=== PATIENT | female | born 1970 | race Caucasian/White ===

== ENCOUNTER 2023-07-09 11:20 | Outpatient (OUT) | payer OTHER, SELFPAY ==
--- NOTE | 2023-07-09 | XR_ITS ---
The [address] [address] Patient Name: ION KUNZ MRN: [id number] date: 1970 Sex: F Assigned Patient Location: Current Patient Location: Accession/Order Number: [id number] Exam Date: 07/09/2023 11:22 Report Date: 07/09/2023 16:03 At the request of: TOBI RAMON Procedure: XR foot LT min 3V PROCEDURE: XR foot LT min 3V COMPARISON: None. HISTORY: LEFT FOOT PAIN FINDINGS: BONES:No fracture, acute abnormality, or significant arthropathy. SOFT TISSUES:Negative. No visible soft tissue swelling. EFFUSION:None visible. OTHER: Negative. XR/XR foot LT min 3V IMPRESSION: No acute radiographic abnormality Electronically authenticated by: VEE ABEBE Date: 07/09/2023 16:03
== END 2023-07-09 11:21 | disposition home or self-care (01) ==
LOC: EC 11:21
PROVIDERS: PCP Internal Medicine; Visit Provider Physician Assistant
DX: M79.672 Pain in left foot (principal)
CPT/HCPCS: 73630

== ENCOUNTER 2023-07-22 09:14 | Outpatient (OUT) | payer OTHER, SELFPAY ==
--- NOTE | 2023-07-22 | XR_ITS ---
The [address] [address] Patient Name: INO KUNZ MRN: [id number] date: 1970 Sex: F Assigned Patient Location: Current Patient Location: Accession/Order Number: [id number] Exam Date: 07/22/2023 09:14 Report Date: 07/22/2023 12:58 At the request of: J CARLOS MTZ Procedure: XR foot LT min 3V PROCEDURE: XR foot LT min 3V COMPARISON: 07/09/2023 HISTORY: LEFT FOOT PAIN FINDINGS: BONES:No fracture, acute abnormality, or significant arthropathy. SOFT TISSUES:Negative. No visible soft tissue swelling. EFFUSION:None visible. OTHER: Negative. XR/XR foot LT min 3V IMPRESSION: No acute disease. Electronically authenticated by: VEE ABEBE Date: 07/22/2023 12:58
--- OUTSIDE RECORDS SUMMARY | 2023-07-22 09:26 | XMS_ITS | CCD ---
Author Organization [facility] Care Team Providers Care Toolroom Attendant Name Role Phone TOBI RAMON Admitting Unavailable TOBI RAMON Attending Unavailable MISC, DR ADAMS Primary Care Unavailable TRISTEN, TOBI Admitting Unavailable TRISTEN, TOBI Attending Unavailable MISC, DR ADAMS Primary Care Unavailable ZIKAYLAN, DR NONI Monteiro Consulting Unavailable TRISTEN, TOBI Consulting Unavailable TRISTEN, TOBI Admitting Unavailable TRISTEN, TOBI Attending Unavailable MISC, DR ADAMS Primary Care Unavailable TOBI RAMON Consulting Unavailable J CARLOS LEMUS Consulting Unavailable TRISTEN, TOBI Admitting Unavailable TRISTEN, TOBI Attending Unavailable MISC, DR ADAMS Primary Care Unavailable MIS, DR VEE Babb Consulting Unavailable TRISTEN, TOBI Consulting Unavailable STACY, DR NOONAN Admitting Unavailable STACY, DR NOONAN Attending Unavailable ALEXANDREAC, DR ADAMS Primary Care Unavailable STACY, DR NOONAN Consulting Unavailable CAITY Hernandez Attending Provider Matilde Hernandez Attending Unavailable Matilde Hernandez Admitting Unavailable NO FAMILY, PHYSICIAN Primary Care Unavailable No Rosas Primary Care Physician [phone] No Rosas Admitting Unavailable RalphNo Attending Unavailable RalphNo Attending Unavailable RalphNo Attending Unavailable RalphNo Attending Unavailable No Rosas Admitting Unavailable Medications Current Medications Medication Drug Class(es) Dates Sig (Normalized) Sig (Original) ferrous sulfate 325 mg oral tablet (1 source) Start: 06-19-2023 take 1 tablet by mouth once daily ferrous sulfate 325 mg Tab 325 mg = 1 tab(s), Oral, Daily, # 90 tab(s), Refills(s) 0, Pharmacy: [facility]/pharmacy #[id number], 170.5, cm, 06/18/23 9:25:00 EDT, Height/Length Dosing, 95.8, kg, 06/18/23 9:25:00 EDT, Weight Dosing Start Date: 06/19/23 Status: Ordered phentermine hydrochloride 37.5 mg oral tablet (1 source) Sympathomimetic Amine Anorectic Start: 06-26-2023 take 1 tablet by mouth once daily phentermine 37.5 mg Tab 37.5 mg = 1 tab(s), Oral, Daily, # 30 tab(s), Refills(s) 0, Pharmacy: [id number], 170.9, cm, 06/26/23 15:15:00 EDT, Height/Length Dosing, 97.2, kg, 06/26/23 15:15:00 EDT, Weight Dosing Start Date: 06/26/23 Status: Ordered Completed/Discontinued Medications Medication Drug Class(es) Dates Sig (Normalized) Sig (Original) Vitamin D 50,000 intl units (1.25 mg) oral capsule (1 source) Start: 06-19-2023 take 1 capsule by mouth every week Vitamin D 50,000 intl units (1.25 mg) oral capsule 50,000 International_Unit = 1 cap(s), Oral, qWeek, # 12 cap(s), Refills(s) 3, Pharmacy: [facility]/pharmacy #[id number], 170.5, cm, 06/18/23 9:25:00 EDT, Height/Length Dosing, 95.8, kg, 06/18/23 9:25:00 EDT, Weight Dosing Start Date: 06/19/23 Status: Ordered Problems Problem Classification Problem Date Documented Da te Episodic/Chronic Fracture of lower limb (5 sources) Nondisplaced fracture of fifth metatarsal bone, left foot, subsequent encounter for fracture with routine healing; Translations: [Displaced fracture of fifth metatarsal bone, left foot, initial encounter for closed fracture] Onset: 04-01-2022 Episodic Genitourinary symptoms and ill-defined conditions (1 source) Dysuria; Translations: [Dysuria] Onset: 04-03-2023 Episodic Malaise and fatigue (2 sources) Fatigue 06-18-2023 Episodic Other connective tissue disease (4 sources) Pain in left foot; Translations: [PAIN IN LEFT FOOT] Onset: 05-01-2022 Episodic Other connective tissue disease (2 sources) Foot pain 06-18-2023 Episodic Other non-traumatic joint disorders (2 sources) Joint pain 06-18-2023 Episodic Other nutritional; endocrine; and metabolic disorders (1 source) Body mass index 30+ - obesity 06-26-2023 Chronic Other nutritional; endocrine; and metabolic disorders (2 sources) Weight gain 06-18-2023 Episodic Unclassified (2 sources) Patient encounter status 06-26-2023 Results Test Name Value Interpretation Reference Range Facility Reminderson 07-02-2023 Reminders - From: No Ford To: [facility] - Clinical; Sent: 07/02/2023 10:59:13 EDT Show up: 07/02/2023 11:00:00 EDT Subject: Ambulatory Reminder Due Date/Time: 07/03/2023 10:59:00 EDT pap and HPV negative Results: Date Result Name Value Ref Range 06/26/2023 15:19 HPV Aptima Negative (Negative - ) 06/26/2023 15:19 PAP Note Patient informed and voiced understanding. Normal [facility] PAP [id number] 07-01-2023 Cytology report Cyto stain Doc (Cvx/Vag) Note Invalid Interpretation Code [facility] Comment on above: Result Comment: TEST S RESULT FLAG UNITS REF RANGE LAB Clinician Provided Cytology Information Source.............Vagina No. of containers..01 ThinPrep Vial DIAGNOSIS: 01 NEGATIVE FOR INTRAEPITHELIAL LESION OR MALIGNANCY. Specimen adequacy: 01 Satisfactory for evaluation. Performed by: Noah Gamez, Time Piece Repairer ([facility]) . 01 Note: Note 02 The Pap smear is a screening test designed to aid in the detection of premalignant and malignant conditions of the uterine cervix. It is not a diagnostic procedure and should not be used as the sole means of detecting cervical cancer. Both false-positive and false-negative reports do occur. Test Methodology: Note 02 This liquid based ThinPrep(R) pap test was screened with the use of an image guided system. HPV Genotype Reflex Note 01 Criteria not met, HPV Genotype not performed. FLAG LEGEND: L-Low Normal,H-High Normal,LL-Alert Low,HH-Alert High <-Panic Low,>-Panic High,A-Abnormal,AA-Critical Abnormal Performed at: 01 [facility] [address] [place] [address] Juan Carlos Meyer MD, [address] [address] Marii Alex MD, Performed By: #### 1 [id number] #### [facility] [address] [place] [address] HPV 16+18+31+33+35+39+45+ 51+52+56+58+59+66+68 DNA Probe+sig amp Ql (Cvx) Negative Invalid Interpretation Code Negative [facility] Comment on above: Result Comment: This nucleic acid amplification test detects fourteen high-risk HPV types (16,18,31,33,35,39,45,51,52,56,58,59,66,68) without differentiation. Performed at: [facility] [address] [place], [place] [id number] MD Mitch Rangel Performed at: =[facility] [address] [id number] MD Isai Colvin Performed By: #### 1 [id number] #### [facility] [address] [place] [address] Medication Consenton 024 Medication Consent [id number]#[id number] Normal [facility] Physician Orderon 06-29-2023 Physician Order [id number] #1.00TIFF Normal [facility] Family Medicine Office/Clini c Noteon 06-26-2023 Family Medicine Office/Clinic Note HPI Staff Luh is a 52 year old female presenting for well woman Woman check up: Last pap: 2016 Last José Miguel: pap order [id number] 06/18/23 Results of lap pap: normal Where was it done: hx: # of pregnancies..2. abortions...Miscarri age.2.. live births... living children...0 menstrual cycle (normal,heavy,ect): hysterectomy History of STD: no Do you want tested for STD today: no Vaginal discharge, odor, itching: no Self breast exam at home? yes Hx of breast, cervical or uterine cancer in the family: no History of Present Illness pt presents today for well woman exam Review of Systems PHQ Score Initial Depression Screen Score: 0 SCORE Physical Exam Vitals & Measurements HR: 72(Peripheral) RR: 18 BP: 122/80 SpO2: 99% HT: 67 in HT: 170.9 cm WT: 97.15 kg WT: 213.73 lb BMI: 33.26 General: Well developed, well nourished, in no acute distress Neck: Neck supple. No masses or palpable cervical nodes. Trachea midline. Thyroid without nodules, masses, tenderness, or enlargement Breast: No mass, nodule, discharge, or erythema bilaterally, and no axillary lymphadenopathy Lungs: Normal respiratory effort and clear to auscultation Cardio: Regular rate and rhythm, normal S1 and S2, no murmur, no rub Abdomen: Soft, non-distended, non-tender, normal bowel sounds x4 Gyno: normal external genitalia. Urethra no discharge. Vagina normal without lesions, no vaginal discharge. Hysterectomy Neurologic: Grossly normal Skin: [place], moist, no tenting Lymph Nodes: No cervical adenopathy, nodes normal Mental Status: Alert and oriented x3. Normal mood and affect Assessment/Plan 1. Well woman exam (Z01.419: Encounter for gynecological examination (general) (routine) without abnormal findings) well woman exam. pap obtained. BSE discussed. mammogram order provided. all questions answered. RTC as needed Ordered: phentermine, 37.5 mg = 1 tab(s), Oral, Daily, # 30 tab(s), Refills(s) 0, Pharmacy: [facility] #[facility], 170.9, cm, 06/26/23 15:15:00 EDT, Height/Length Dosing, 97.2, kg, 06/26/23 15:15:00 EDT, Weight Dosing PAP w/ HPV and Genotype rflx 2. Breast cancer screening (Z12.39: Encounter for other screening for malignant neoplasm of breast) mammogram order given Ordered: phentermine, 37.5 mg = 1 tab(s), Oral, Daily, # 30 tab(s), Refills(s) 0, Pharmacy: [facility] #[facility], 170.9, cm, 06/26/23 15:15:00 EDT, Height/Length Dosing, 97.2, kg, 06/26/23 15:15:00 EDT, Weight Dosing PAP w/ HPV and Genotype rflx 3. Weight gain (R63.5: Abnormal weight gain) up 3 pounds since last visit. will start adipex 4. BMI 33.0-33.9,adult (Z68.33: Body mass index [BMI] 33.0-33.9, adult) bmi education complete Follow-up No qualifying data available Problem List/Past Medical History Ongoing BMI 33.0-33.9,adult Breast cancer screening Fatigue Foot pain Joint pain Weight gain Well woman exam Historical No qualifying data Procedure/Surgical History Hysterectomy and bilateral salpingo-oophorectom y specimen. Medications ferrous sulfate 325 mg Tab, 325 mg= 1 tab(s), Oral, Daily phentermine 37.5 mg Tab, 37.5 mg= 1 tab(s), Oral, Daily Vitamin D 50,000 intl units (1.25 mg) oral capsule, [address]106 International_Unit= 1 cap(s), Oral, qWeek, 3 refills Allergies No Known Allergies Social History Alcohol Current, Wine, 1-2 times per month, Alcohol use interferes with work or home: No. Drinks more than intended: No. Others hurt by drinking: No. Ready to change: No. Household alcohol concerns: No., 06/18/2023 Tobacco Never (less than 100 in lifetime) Tobacco Use:. Never Smokeless Tobacco Use:. Household tobacco concerns: No., 06/26/2023 Family History Primary malignant neoplasm of skin: Father. Rheumatoid arthritis: Mother. Immunizations Vaccine Date Status influenza virus vaccine, inactivated 10/30/2020 Recorded SARS-CoV-2 (COVID-19) mRNA BNT-162b2 vax 04/13/2020 Recorded SARS-CoV-2 (COVID-19) mRNA BNT-162b2 vax 03/23/2020 Recorded influenza virus vaccine, inactivated 10/31/2019 Recorded influenza virus vaccine, inactivated 11/10/2018 Recorded influenza virus vaccine, inactivated 10/27/2017 Recorded Normal [facility] Comment on above: Result Comment: Elec tronically Signed By: No Ford\.br\Date and Time Signed: 06/26/23 15:40 EDT PAP [id number] 06-26-2023 Gynecological Body Site VAGINA Normal [facility] Comment on above: Performed By: #### 1 [id number] #### [facility] [address] [place] [address] Provider Letteron 06-25-2023 Provider Letter June 25, 2023 LUH KUNZ [address] [place] [phone] : 1970 Dear Luh, We have been trying to reach you with no success. It is important that you return our call regarding your test results upon receiving this letter. Also, at the time of your call, please provide us with your current information. Thank you for your prompt attention to this matter. Sincerely, [place] [address] [facility] Reminderson 06-25-2023 Reminders - From: No Ford To: [facility] - Clinical; Sent: 06/22/2023 14:20:35 EDT Show up: 06/22/2023 14:21:00 EDT Subject: Ambulatory Reminder Due Date/Time: 06/23/2023 14:20:00 EDT Rheumatoid and inflammatory labs are negative Results: Date Result Name Value Ref Range 06/18/2023 9:57 CCP Abys IgG/IgA 6 unit(s) (0-19 - ) 06/18/2023 9:57 CHATO Direct Negative (Negative - ) 06/18/2023 9:57 RA Latex Turbid <10.0 International_Unit/m L (<14.0 - ) 2 messages in chart attempted to call 3 times. Messages in 2nd message. letter sent. Normal [facility] Reminderson 06-23-2023 Reminders - From: No Ford To: [facility] - Clinical; Sent: 06/19/2023 09:16:44 EDT Show up: 06/19/2023 09:17:00 EDT Subject: Ambulatory Reminder Due Date/Time: 06/20/2023 09:16:00 EDT will send vitamin D to pharmacy as well as iron supplement Results: Date Result Name Ind Value Ref Range 06/18/2023 9:57 CRP 0.4 mg/dL ( - <=1.9) 06/18/2023 9:57 Iron 99 mcg/dL (35 - 153) 06/18/2023 9:57 Transferrin 316 mg/dL (200 - 370) 06/18/2023 9:57 TIBC ((H)) 442 mcg/dL (250 - 400) 06/18/2023 9:57 TSH 2.82 mcIU/mL (0.34 - 5.60) 06/18/2023 9:57 T4 Free 0.85 ng/dL (0.58 - 1.64) 06/18/2023 9:57 Vitamin D 25 Hydroxy ((L)) 23.4 ng/mL (30.0 - 100.0) Attempted to call patient. No answer. Left message for patient to return call. Attempt #2 to call patient. No answer. Left message for patient to return call. 2 messages in chart. Normal [facility] CHATO w/Reflex if POSon 2023 Nuclear Ab Ql (S) Negative Invalid Interpretation Code Negative [facility] Comment on above: Result Comment: Perf ormed at: [address] [id number] PhD Alessandra Hodge Performed By: #### 5 [id number] #### [facility] [address] [place] [address] CCP Antibodies IgG/IgAon Cyclic citrullinated peptide IgA+IgG IA Qn 6 unit(s) Invalid Interpretation Code 0-19 [facility] Comment on above: Result Comment: Nega tive <20 Weak positive 20 - 39 Moderate positive 40 - 59 Strong positive >59 Performed at: [address] [id number] PhD Alessandra Hodge Performed By: #### 1 [id number] #### [facility] [address] [place] [address] RF Quanton 06-22-2023 Rheumatoid factor Qn [IU]/mL Invalid Interpretation Code <14.0 [facility] Comment on above: Result Comment: Perf ormed at: [address] [id number] PhD Alessandra Hodge Performed By: #### 1 [id number] #### [facility] [address] [place] [address] T3 Freeon 06-20-2023 Free T3 [Mass/Vol] 3.3 pg/mL Invalid Interpretation Code 2.0-4.4 [facility] Comment on above: Result Comment: Perf ormed at: [address] [id number] PhD Alessandra Hodge Performed By: #### 5 [id number] #### [facility] [address] [place] [address] Ambulatory Visit Summaryon 0 06-18-2023 Ambulatory Visit Summary LUH KUNZ :1970 Visit Date:06/18/2023 Ambulatory Visit Instructions Your Diagnosis Fatigue Joint pain Weight gain Foot pain Your Care Team Attending Physician - No Ford Primary Care Physician - No Ford Procedures Performed Hysterectomy and bilateral salpingo-oophorectom y specimen. Discharge Vitals Heart Rate (Peripheral) 96 Respiratory Rate 18 Blood Pressure 126/80 Height 170.5 cm Height 67 in Weight 95.8 kg Weight 210.76 lb BMI 32.95 What to do next Scheduled Follow-Up Appointments Thursday 3:00 PM EDT With: No Ford Where: [facility] Medicine Joe Normal [facility] CHEMISTRYOrdered By: SYSTEM SYSTEM on 06-18-2023 25-hydroxyvitamin D3 [Mass/Vol] 23.4 ng/mL Low 30.0 - 100.0 ng/mL Remisol Chem CRP [Mass/Vol] 0.4 mg/dL Normal <=1.9mg/dL Remisol Ch em Free T4 [Mass/Vol] 0.85 ng/dL Normal 0.58 - 1. 64 ng/dL Remisol Chem Iron [Mass/Vol] 99 ug/dL Normal 35 - 153 mcg/dL Remisol Chem Iron binding capacity [Mass/Vol] 442 ug/dL High 250 - 400 mcg/dL Remisol Chem Transferrin [Mass/Vol] 316 mg/dL Normal 200 - 370 mg/dL Remisol Chem TSH Qn 2.82 m[IU]/L Normal 0.34 - 5.60 mcIU/mL Remisol Chem CRPon 06-18-2023 CRP [Mass/Vol] 0.4 mg/dL Normal <=1.9 [facility] Comment on above: Performed By: #### 1 [id number] #### [facility] [address] [place] [address] Family Medicine Office/Clini c Noteon 05-09-2024 Family Medicine Office/Clinic Note HPI Staff Luh is a 52 year old female presenting to establish care Establish Care: History: Any previous diagnosis: n/a History of seeing any specialist: When was your last doctors visit: Last provider: Delphine Any recent labs: 09/2022 [facility] Health Maintenance UTD: Colonoscopy: never had one Mammogram: Never had one, would like order to [facility] Pelvic/Pap: 2016 Acute: Current issues/complaints: bilateral feet aching has been going on for about a month, worse when she has been sleeping all night and goes to get up in the morning bottom of feet feel tight. Fatigue: onset for a year, goes to sleep around 9pm but wakes up a few times throughout the night and when waking in the morning feels exhausted. Denies snoring, waking up choking, no apnea. Onset: 2 weeks ago intermittent bilateral hands joints feel tight. History of Present Illness pt presents today to establish care. c/o joint pain, fatigue and foot pain Review of Systems PHQ Score Initial Depression Screen Score: 0 SCORE Physical Exam Vitals & Measurements HR: 96(Peripheral) RR: 18 BP: 126/80 SpO2: 97% HT: 67 in HT: 170.5 cm WT: 95.8 kg WT: 210.76 lb BMI: 32.95 General: alert, no acute distress ENMT: oral mucosa moist, no pharyngeal erythema or exudate Cardiovascular: regular rate and rhythm, normal peripheral perfusion Respiratory: Lungs CTA, respirations non labored Extremities: no deformity, no trauma Neurological: oriented x 4, LOC appropriate for age, CN II-XII intact, motor strength equal & normal bilaterally, speech normal Assessment/Plan 1. Fatigue (R53.83: Other fatigue) pt c/o worsening fatigue that started about a year ago but is worsening the last couple weeks. will check labs today. pt to return for a well woman exam. will discuss results at that visit. Ordered: Free T4 Iron Level T3 Free Thyroid Stimulating Hormone TIBC Calculated Vitamin D 25 Hydroxy 2. Joint pain (M25.50: Pain in unspecified joint) AFSHAN hands and finger joints are still and painful. mom has RA will check labs today Ordered: Free T4 Iron Level T3 Free Thyroid Stimulating Hormone TIBC Calculated Vitamin D 25 Hydroxy 3. Weight gain (R63.5: Abnormal weight gain) pt c/o weight gain having difficulty losing it Ordered: Free T4 Iron Level T3 Free Thyroid Stimulating Hormone TIBC Calculated Vitamin D 25 Hydroxy 4. Foot pain (M79.673: Pain in unspecified foot) PT c/o AFSHAN foot pain on top and across toes Orders: CHATO w/Reflex if POS C-Reactive Protein CCP Antibodies IgG/IgA Rheumatoid Factor Quantitative Follow-up No qualifying data available Patient Education Plantar Fasciitis Problem List/Past Medical History Ongoing Fatigue Foot pain Joint pain Weight gain Historical No qualifying data Procedure/Surgical History Hysterectomy and bilateral salpingo-oophorectom y specimen. Medications No active medications Allergies No Known Allergies Social History Alcohol Current, Wine, 1-2 times per month, Alcohol use interferes with work or home: No. Drinks more than intended: No. Others hurt by drinking: No. Ready to change: No. Household alcohol concerns: No., 06/18/2023 Tobacco Never (less than 100 in lifetime) Tobacco Use:. Never Smokeless Tobacco Use:. Household tobacco concerns: No., 06/18/2023 Family History Primary malignant neoplasm of skin: Father. Rheumatoid arthritis: Mother. Immunizations Vaccine Date Status influenza virus vaccine, inactivated 10/30/2020 Recorded SARS-CoV-2 (COVID-19) mRNA BNT-162b2 vax 04/13/2020 Recorded SARS-CoV-2 (COVID-19) mRNA BNT-162b2 vax 03/23/2020 Recorded influenza virus vaccine, inactivated 10/31/2019 Recorded influenza virus vaccine, inactivated 11/10/2018 Recorded influenza virus vaccine, inactivated 10/27/2017 Recorded Normal [facility] Comment on above: Result Comment: Elec tronically Signed By: No Ford\.br\Date and Time Signed: 06/18/23 10:03 EDT Free T4on 06-18-2023 Free T4 [Mass/Vol] 0.85 ng/dL Normal 0.58-1.64 [facility] Comment on above: Performed By: #### 5 [id number] #### [facility] [address] [place] [address] Ironon 06-18-2023 Iron [Mass/Vol] 99 microgram/dL Normal 35-153 [facility] Comment on above: Performed By: #### 5 [id number] #### [facility] [address] [place] [address] Patient Educationon 06-18-19 Patient Education Orthopedics Plantar Fasciitis Plantar fasciitis is a painful foot condition that affects the heel. It occurs when the band of tissue that connects the toes to the heel bone (plantar fascia) becomes irritated. This can happen as the result of exercising too much or doing other repetitive activities (overuse injury). Plantar fasciitis can cause mild irritation to severe pain that makes it difficult to walk or move. The pain is usually worse in the morning after sleeping, or after sitting or lying down for a period of time. Pain may also be worse after long periods of walking or standing. What are the causes? This condition may be caused by: ? Standing for long periods of time. ? Wearing shoes that do not have good arch support. ? Doing activities that put stress on joints (high-impact activities). This includes ballet and exercise that makes your heart beat faster (aerobic exercise), such as running. ? Being overweight. ? An abnormal way of walking (gait). ? Tight muscles in the back of your lower leg (calf). ? High arches in your feet or flat feet. ? Starting a new athletic activity. What are the signs or symptoms? The main symptom of this condition is heel pain. Pain may get worse after the following: ? Taking the first steps after a time of rest, especially in the morning after awakening, or after you have been sitting or lying down for a while. ? Long periods of standing still. Pain may decrease after 30?45 minutes of activity, such as gentle walking. How is this diagnosed? This condition may be diagnosed based on your medical history, a physical exam, and your symptoms. Your health care provider will check for: ? A tender area on the bottom of your foot. ? A high arch in your foot or flat feet. ? Pain when you move your foot. ? Difficulty moving your foot. You may have imaging tests to confirm the diagnosis, such as: ? X-rays. ? Ultrasound. ? MRI. How is this treated? Treatment for plantar fasciitis depends on how severe your condition is. Treatment may include: ? Rest, ice, pressure (compression), and raising (elevating) the affected foot. This is called RICE therapy. Your health care provider may recommend RICE therapy along with [id number] pain medicines to manage your pain. ? Exercises to stretch your calves and your plantar fascia. ? A splint that holds your foot in a stretched, upward position while you sleep (night splint). ? Physical therapy to relieve symptoms and prevent problems in the future. ? Injections of steroid medicine (cortisone) to relieve pain and inflammation. ? Stimulating your plantar fascia with electrical impulses (extracorporeal shock wave therapy). This is usually the last treatment option before surgery. ? Surgery, if other treatments have not worked after 12 months. Follow these instructions at home: Managing pain, stiffness, and swelling ? If directed, put ice on the painful area. To do this: ? Put ice in a plastic bag, or use a frozen bottle of water. ? Place a towel between your skin and the bag or bottle. ? Roll the bottom of your foot over the bag or bottle. ? Do this for 20 minutes, 2?3 times a day. ? Wear athletic shoes that have air-sole or gel-sole cushions, or try soft shoe inserts that are designed for plantar fasciitis. ? Elevate your foot above the level of your heart while you are sitting or lying down. Activity ? Avoid activities that cause pain. Ask your health care provider what activities are safe for you. ? Do physical therapy exercises and stretches as told by your health care provider. ? Try activities and forms of exercise that are easier on your joints (low impact). Examples include swimming, water aerobics, and biking. General instructions ? Take hmhr-mte-bkcmmcb and prescription medicines only as told by your health care provider. ? Wear a night splint while sleeping, if told by your health care provider. Loosen the splint if your toes tingle, become numb, or turn cold and blue. ? Maintain a healthy weight, or work with your health care provider to lose weight as needed. ? Keep all follow-up visits. This is important. Contact a health care provider if you have: ? Symptoms that do not go away with home treatment. ? Pain that gets worse. ? Pain that affects your ability to move or do daily activities. Summary ? Plantar fasciitis is a painful foot condition that affects the heel. It occurs when the band of tissue that connects the toes to the heel bone (plantar fascia) becomes irritated. ? Heel pain is the main symptom of this condition. It may get worse after exercising too much or standing still for a long time. ? Treatment varies, but it usually starts with rest, ice, pressure (compression), and raising (elevating) the affected foot. This is called RICE therapy. Omnv-vju-uahflnn medicines can also be used to manage pain. This information is not (more content not included)... Normal [facility] TIBC Calculatedon 06-18-2023 Iron binding capacity [Mass/Vol] 442 microgram/dL High 250-400 [facility] Comment on above: Performed By: #### 5 [id number], [id number], [id number] #### [facility] [address] [place] [address] Transferrin [Mass/Vol] 316 mg/dL Normal 200-370 [facility] Comment on above: Performed By: #### 5 [id number], [id number], [id number] #### [facility] [address] [place] [address] TSHon 06-18-2023 TSH Qn 2.82 m[IU]/L Normal 0.34-5.60 [facility] Comment on above: Performed By: #### 5 [id number], [id number], [id number], [id number], [id number] #### [facility] [address] [place] [address] Vitamin D 25 Hydroxyon 06-17 25-hydroxyvitamin D3 [Mass/Vol] 23.4 ng/mL Low 30.0-100.0 [facility] Comment on above: Performed By: #### 5 [id number], [id number], [id number], [id number] #### [facility] [address] [place] [address] Urine Cultureon 04-02-2023 Bacteria identified Cx Nom (U) DIAGNOSIS R30.0 DYSURIA >100,000 colonies/ml mixed bacterial skin contaminants 2 Days PERFORMED BY: [place] [id number] PATHOLOGIST [employer] WORKER YESSENIA PRITCHARD M.D. Normal [facility] Comment on above: Performed By: #### C UU #### [place] [id number] [facility] XR FOOT LT MIN 3 VIEWSon XR FOOT LT MIN 3 VIEWS EXAM: XR FOOT LT MIN 3 VIEWS HISTORY: Pain in left foot . Follow-up study. COMPARISON: 04/01/2022 TECHNIQUE: 3 views of left foot were obtained. FINDINGS: Again seen is a healing nondisplaced fracture at the base of the fifth metatarsal bone. There is no other evidence of a fracture or dislocation. The joint spaces appear intact. IMPRESSION: Healing nondisplaced fracture of the base of the fifth metatarsal bone, which remains essentially unchanged. Electronically authenticated by: J CARLOS LEMUS Date: 2022-05-01 14:46 Normal [facility] CBC AUTO DIFFon 09-26-2021 BASO # 0.1 103/ul Normal 0.0-0.1 [facility] Comment on above: Performed By: #### H FPFCBC #### [facility] [address] [place] [address] Dr. Sapphire Watson Basophils/100 WBC (Bld) 1.1 % Normal 0.2-2.0 [facility] Comment on above: Performed By: #### H FPFCBC #### [facility] [address] [address] [address] Sapphire Watson EO # 0.1 103/ul Normal 0.0-0.7 [facility] Comment on above: Performed By: #### H FPFCBC #### [facility] [address] [address] [address] Sapphire Watson Eosinophils/100 WBC (Bld) 1.8 % Normal 0.9-7.0 [facility] Comment on above: Performed By: #### H FPFCBC #### [facility] [address] [place] [address] Dr. Sapphire Watson Erythrocyte distribution width (RBC) [Ratio] 12.0 % Normal 11.0-15.0 [facility] Comment on above: Performed By: #### H FPFCBC #### [facility] [address] [place] [address] Dr. Sapphire Watson Hematocrit (Bld) [Volume fraction] 38.8 % Normal 36.0-48.0 [facility] Comment on above: Performed By: #### H FPFCBC #### [facility] [address] [place] [address] Dr. Sapphire Watson Hemoglobin (Bld) [Mass/Vol] 13.1 g/dL Normal 12.0-16.0 [facility] Comment on above: Performed By: #### H FPFCBC #### [facility] [address] [place] [address] Dr. Sapphire Watson IG # 0.01 10e3/ul Normal 0.00-0.03 [facility] Comment on above: Performed By: #### H FPFCBC #### [facility] [address] [place] [address] Dr. Sapphire Watson IG % 0.2 % Normal 0.0-0.5 [facility] Comment on above: Performed By: #### H FPFCBC #### [facility] [address] [place] [address] Dr. Sapphire Watson LYMPH # 1.6 103/ul Normal 1.2-3.8 [facility] Comment on above: Performed By: #### H FPFCBC #### [facility] [address] [place] [address] Dr. Sapphire Watson Lymphocytes/100 WBC (Bld) 36.2 % Normal 20.5-60.0 [facility] Comment on above: Performed By: #### H FPFCBC #### [facility] [address] [place] [address] Dr. Sapphire Watson MCH (RBC) [Entitic mass] 30.0 pg Normal 26.7-34.0 [facility] Comment on above: Performed By: #### H FPFCBC #### [facility] [address] [place] [address] Dr. Sapphire Watson MCHC (RBC) [Mass/Vol] 33.8 g/dL Normal 29.9-35.2 [facility] Comment on above: Performed By: #### H FPFCBC #### [facility] [address] [place] [address] Dr. Sapphire Watson MCV (RBC) [Entitic vol] 89.0 fL Normal 81.0-99.0 [facility] Comment on above: Performed By: #### H FPFCBC #### [facility] [address] [place] [address] Dr. Sapphire Watson MONO # 0.4 103/ul Normal 0.3-0.8 [facility] Comment on above: Performed By: #### H FPFCBC #### [facility] [address] [place] [address] Dr. Sapphire Watson Monocytes/100 WBC (Bld) 8.5 % Normal 1.7-12.0 [facility] Comment on above: Performed By: #### H FPFCBC #### [facility] [address] [place] [address] Dr. Sapphire Watson NEUT # 2.3 103/ul Normal 1.4-6.5 [facility] Comment on above: Performed By: #### H FPFCBC #### [facility] [address] [place] [address] Dr. Sapphire Watson Neutrophils/100 WBC (Bld) 52.2 % Normal 43.0-75.0 [facility] Comment on above: Performed By: #### H FPFCBC #### [facility] [address] [place] [address] Dr. Sapphire Watson Platelet mean volume (Bld) [Entitic vol] 9.5 fL Normal 9.5-13.5 [facility] Comment on above: Performed By: #### H FPFCBC #### [facility] [address] [place] [address] Dr. Sapphire Watson PLT 293 103/ul Normal 150-450 [facility] Comment on above: Performed By: #### H FPFCBC #### [facility] [address] [place] [address] Dr. Sapphire Watson RBC 4.36 106/ul Normal 4.20-5.40 [facility] Comment on above: Performed By: #### H FPFCBC #### [facility] [address] [place] [address] Dr. Sapphire Watson WBC 4.5 103/ul Normal 4.0-11.0 [facility] Comment on above: Performed By: #### H FPFCBC #### [facility] [address] [place] [address] Dr. Sapphire Watson [facility] PROFILEon 022 Albumin [Mass/Vol] 3.9 g/dL Normal 3.4-5.0 [facility] Comment on above: Performed By: #### H FPF #### [facility] [address] [place] [address] Dr. Sapphire Watson Albumin/Globulin [Mass ratio] 1.0 {ratio} Normal [facility] Comment on above: Performed By: #### H FPF #### [facility] [address] [place] [address] Dr. Sapphire Watson ALP [Catalytic activity/Vol] 85 U/L Normal 46-116 [facility] Comment on above: Performed By: #### H FPF #### [facility] [address] [place] [address] Dr. Sapphire Watson ALT [Catalytic activity/Vol] 29 U/L Normal 14-59 [facility] Comment on above: Performed By: #### H FPF #### [facility] [address] [place] [address] Dr. Sapphire Watson AST [Catalytic activity/Vol] 17 U/L Normal 15-37 [facility] Comment on above: Performed By: #### H FPF #### [facility] [address] [place] [address] Dr. Sapphire Watson Bilirubin [Mass/Vol] 0.5 mg/dL Normal 0.2-1.0 [facility] Comment on above: Performed By: #### H FPF #### [facility] [address] [address] [address] Sapphire Watson Calcium [Mass/Vol] 8.9 mg/dL Normal 8.5-10.1 [facility] Comment on above: Performed By: #### H FPF #### [facility] [address] [address] [address] Sapphire Watson Chloride [Moles/Vol] 103 mmol/L Normal 98-107 [facility] Comment on above: Performed By: #### H FPF #### [facility] [address] [place] [address] Dr. Sapphire Watson CHOL-HDL RATIO NORM SEE BELOW Normal [facility] Comment on above: Result Comment: 3.3 - 4.4 LOW RISK 4.4 - 7.1 AVERAGE RISK 7.1 - 11.0 MODERATE RISK >11.0 HIGH RISK Performed By: #### H FPF #### [facility] [address] [address] [address] Sapphire Watson Cholesterol [Mass/Vol] 192 mg/dL Normal <=200 [facility] Comment on above: Performed By: #### H FPF #### [facility] [address] [place] [address] Dr. Sapphire Watson Cholesterol in HDL [Mass/Vol] 57 mg/dL Normal 40-60 [facility] Comment on above: Performed By: #### H FPF #### [facility] [address] [address] [address] Sapphire Watson Cholesterol in LDL [Mass/Vol] 113.0 mg/dL Normal [facility] Comment on above: Performed By: #### H FPF #### [facility] [address] [address] [address] Sapphire Watson Cholesterol.total/Cho lesterol in HDL [Mass ratio] 3.4 {ratio} Normal [facility] Comment on above: Performed By: #### H FPF #### [facility] [address] [address] [address] Sapphire Watson CO2 [Moles/Vol] 26.7 mmol/L Normal 21.0-32.0 [facility] Comment on above: Performed By: #### H FPF #### [facility] [address] [address] [address] Sapphire Watson Creatinine [Mass/Vol] 0.68 mg/dL Normal 0.55-1.02 [facility] Comment on above: Performed By: #### H FPF #### [facility] [address] [address] [address] Sapphire Watson Globulin (S) [Mass/Vol] 4.0 g/dL Normal [facility] Comment on above: Performed By: #### H FPF #### [facility] [address] [place] [address] Dr. Sapphire Watson Glucose [Mass/Vol] 87 mg/dL Normal 74-106 [facility] Comment on above: Performed By: #### H FPF #### [facility] [address] [place] [address] Dr. Sapphire Watson HDL NORMAL > or = 60 mg/dl - LOW CARDIOVASCULAR RISK <40 mg/dl - HIGH CARDIOVASCULAR RISK Normal [facility] Comment on above: Performed By: #### H FPF #### [facility] [address] [place] [address] Dr. Sapphire Watson LDL CALC NORMAL SEE BELOW Normal [facility] Comment on above: Result Comment: <100 mg/dl OPTIMAL 100 - 129 mg/dl NEAR OR ABOVE OPTIMAL 130 - 159 mg/dl BORDERLINE HIGH 160 - 189 mg/dl HIGH >190 mg/dl VERY HIGH Performed By: #### H FPF #### [facility] [address] [place] [address] Dr. Sapphire Watson Potassium [Moles/Vol] 4.0 mmol/L Normal 3.5-5.1 [facility] Comment on above: Performed By: #### H FPF #### [facility] [address] [place] [address] Dr. Sapphire Watson Protein [Mass/Vol] 7.9 g/dL Normal 6.4-8.2 [facility] Comment on above: Performed By: #### H FPF #### [facility] [address] [address] [address] Sapphire Watson Sodium [Moles/Vol] 138 mmol/L Normal 136-145 [facility] Comment on above: Performed By: #### H FPF #### [facility] [address] [address] [address] Sapphire Watson Triglyceride [Mass/Vol] 110 mg/dL Normal <=150 [facility] Comment on above: Performed By: #### H FPF #### [facility] [address] [address] [address] Sapphire Watson TSH 3.541 uIU/mL Normal 0.358-3.740 [facility] Comment on above: Performed By: #### H FPF #### [facility] [address] [address] [address] Sapphire Watson Urea nitrogen [Mass/Vol] 13.0 mg/dL Normal 7.0-18.0 [facility] Comment on above: Performed By: #### H FPF #### [facility] [address] [address] [address] Sapphire Watson Urea nitrogen/Creatinine [Mass ratio] 19.1 mg/mg Normal [facility] Comment on above: Performed By: #### H FPF #### [facility] [address] [address] [address] Sapphire Watson VLDL CALC 22.0 mg/dL Normal [facility] Comment on above: Performed By: #### H FPF #### [facility] [address] [address] [address] Sapphire Watson Vital Signs Date Time Vital Sign Value Performing Clinician Kipi lity 04-02-2023 16:38-0500 Body height 170.18 cm [facility] 04-02-2023 16:38-0500 Body mass index (BMI) [Ratio] 31.6 kg/m2 [facility] 04-02-2023 16:38-0500 Body temperature 98.4 [degF] [facility] 04-02-2023 16:38-0500 Body weight 91.79 kg [facility] 04-02-2023 16:38-0500 Heart rate 78 /min [facility] 04-02-2023 16:38-0500 Respiratory rate 18 /min [facility] 04-02-2023 16:38-0500 SaO2% (BldA) [Mass fraction] 97 % [facility] Encounters Encounter Date Encounter Type Care Provider Facility Start: 06-26-2023 End: 06-27-2023 ambulatory No L Ralph Facility:[facility] Start: 06-26-2023 End: 06-26-2023 Lab Drop off No L Ralph [facility] Start: 06-19-2023 ambulatory No Ralph Facility: [facility] Start: 06-18-2023 End: 06-19-2023 ambulatory No L Ralph Facility:[facility] Start: 06-18-2023 End: 06-18-2023 Lab Drop off No L Ralph [facility] Start: 04-03-2023 End: 04-03-2023 ambulatory Matilde L Hernandez Facility:[facility] Start: 04-02-2023 End: 04-02-2023 ambulatory IMPROVEMENT NURSE Matilde Binghamler Work Phone: [facility] Work Phone: Start: 04-02-2023 End: 04-02-2023 Patient encounter procedure IMPROVEMENT NURSE Matilde Hernandez Work Phone: [facility] Work Phone: Start: 04-02-2023 End: 04-02-2023 ambulatory [facility] Work Phone: Start: 04-02-2023 End: 04-02-2023 Patient encounter procedure [facility] Work Phone: Start: 06-12-2022 ambulatory TOBI RAMON Facilit y:[facility] Start: 05-01-2022 End: 05-02-2022 ambulatory TOBI RAMON Facility:[facility] Start: 04-01-2022 End: 04-02-2022 ambulatory TOBI RAMON Facility:[facility] Start: 03-04-2022 End: 03-05-2022 ambulatory TOBI RAMON Facility:[facility] Start: 09-26-2021 End: 09-27-[address] SHAISTA AYERS Facility:[facility] Procedures Date Procedure Procedure Detail Performing Clinician Hysterectomy and afshan ateral salpingo-oophorectomy sample (specimen) No Ralph Plan of Treatment Date Care Activity Detail Author Start: 04-02-2023 Bacteria identified in Urine by Culture [facility] Immunizations Immunization Date Immunization Notes Care Provider Fa darci 10-30-2020 influenza virus vaccine, unspecified formulation No Ralph [facility] 04-13-2020 SARS-CoV-2 (COVID-19 ) mRNA BNT-162b2 vax No Ralph [facility] 03-23-2020 SARS-CoV-2 (COVID-19 ) mRNA BNT-162b2 vax No Ralph [facility] 10-31-2019 influenza virus vaccine, unspecified formulation No Ralph [facility] 11-10-2018 influenza virus vaccine, unspecified formulation No Ralph [facility] 10-27-2017 influenza virus vaccine, unspecified formulation No Ralph [facility] Payers Date Payer Category Payer Self-pay 2023 Unknown [id number] 1970 Unknown [id number] 2.16.84 [id number] 1968 Unknown [id number] 2.16.84 [id number] 1968 Unknown [id number] 2.16.84 [id number] 1968 Unknown [id number] 2.16.84 [id number] 1968 Unknown [id number] 2.16.8 [id number] 1968 Unknown [id number] 2.16.8 [id number] 1968 Unknown [id number] 2.16.8 [id number] 1968 Unknown [id number] 2.16.8 [id number] 1968 Unknown [id number] 2.16.8 [id number] 1961 Self-pay [id number] 1959 Unknown [id number] Unknown [id number] 2.16.84 [id number] Unknown [id number] 2.16.8 [id number] Social History Date Type Detail Facility Tobacco smoking stat [facility] Unknown if ever smoked [facility] Work Phone: Start: 1970 Sex Assigned At Female [facility] Start: 06-18-2023 End: 06-26-2023 Tobacco smoking status Never smoked tobacco (finding) [facility] Tobacco smoking status Never [facility] Sex Assigned At Female [facility] Evaluation + Plan note 06-26-2023 Note Date & Type Note Facility 06-26-2023 Evaluation + Plan note [facility]/ HPV and Genotype rflx 06/26/23 [facility] Clinical Note 04-01-2022 Note Date & Type Note Facility 04-01-2022 Note PROCEDURE: XR FOOT L T MIN 3 VIEWS HISTORY: Pain in left foot COMPARISON: XR foot left 03/04/2022 FINDINGS: BONES:Subacute nondisplaced fracture across base of fifth metatarsal. SOFT TISSUES:No visible soft tissue swelling. EFFUSION:None visible. OTHER: Negative. IMPRESSION: 1. Stable, nondisplaced base of fifth metatarsal fracture with evidence of early ongoing bone healing. Electronically authenticated by: NONI GARCIA Date: 2022-04-01 17:37 [facility] Clinical Note 03-04-2022 Note Date & Type Note Facility 03-04-2022 Note PROCEDURE: XR FOOT L T MIN 3 VIEWS COMPARISON: None. HISTORY: Pain in left foot FINDINGS: BONES:Acute transverse intra-articular fracture nondisplaced nonacute base of the fifth tarsal. No dislocation. SOFT TISSUES:Negative. No visible soft tissue swelling. EFFUSION:None visible. OTHER: Call results initiated through operations IMPRESSION: Acute transverse intra-articular fracture base of the fifth metatarsal Electronically authenticated by: VEE ABEBE Date: 2022-03-04 10:09 [facility] Evaluation + Plan note Note Date & Type Note Facility Evaluation + Plan note Future Appointments Appointment Date:06/26/2023 03:00:00 PM Scheduled Provider:No Ford Location:[facility] Appointment Type: Open Diagnostic Tests PendingRheumatoid Factor Quantitative 06/18/23ANA w/Reflex if POS 06/18/23CCP Antibodies IgG/IgA 06/18/23T3 Free 06/18/23 [facility] Evaluation note Note Date & Type Note Facility Evaluation note No assessment information availa [facility] Work Phone: Hospital course Narrative Note Date & Type Note Facility Hospital course Narrative No data available for this section [facility] Hospital Discharge instructions Note Date & Type Note Facility Hospital Discharge instructions No data available for this section [facility] Progress note Note Date & Type Note Facility Progress note No data available for this section [facility] Summary Purpose Family History No Family History Records FoundNo Family History Records Found No data available for this section No data available for this section No Family History Records FoundNo Family History Records Found Advance Directives No Advanced Directives Records Found Advance Directive Response Recorded Date/ Time Advance Directives No March 4:01pm Chief Complaint and Reason for Visit Chief Complaint dysuria Additional Source Comments INFORMATION SOURCE (unrecogn ized section and content) DATE CREATED AUTHOR 05/27/2022 [facility] DATE CREATED AUTHOR AUTHOR'S ORGANIZ ATION 04/11/2023 [facility] DATE CREATED AUTHOR AUTHOR'S ORGANIZ ATION 06/30/2023 [facility] DATE CREATED AUTHOR AUTHOR'S ORGANIZ ATION 07/04/2023 [facility] Care Teams (unrecognized sec tion and content) Team Status: Active Member Role Status Dates Shaista Ayers DO Primary Care Provider Active Team Status: Inactive Member Role Status Dates Matilde Hernandez APRN Attending Provider Active Start: April 02, 2023 End: April 02, 2023 Shaista Ayers DO Primary Care Provider Active Start: April 02, 2023 End: April 02, 2023 Team Status: Inactive Member Role Status Dates Matilde Hernandez APRN Attending Provider Active Start: April 02, 2023 End: April 02, 2023 Goals (unrecognized section and content) Goals may be documented in a n alternate sectionGoals may be documented in an alternate section No data available for this section No data available for this section FOR RECORDS PERTAINING TO PATIENTS WHO ARE OR HAVE BEEN ENROLLED IN A CHEMICAL DEPENDENCY/SUBSTANCEABUSE PROGRAM, SOME INFORMATION MAY BE OMITTED. This clinical summary was aggregated from multiple sources. Caution should be exercised in using it in the provision of clinical care. This summary normalizes information from multiple sources, and as a consequence, information in this document may materially change the coding, format and clinical context of patient data. In addition, data may be omitted in some cases. CLINICAL DECISIONS SHOULD BE BASED ON THE PRIMARY CLINICAL RECORDS. [employer] provides no warranty or guarantee of the accuracy or completeness of information in this document.
== END 2023-07-22 09:15 | disposition home or self-care (01) ==
LOC: EC 09:14
PROVIDERS: PCP Internal Medicine; Visit Provider Podiatrist Foot & Ankle Surgery
DX: M79.672 Pain in left foot (principal)
CPT/HCPCS: 73630